=== PATIENT | male | born 1955 | race Caucasian/White ===

== ENCOUNTER → 2020-08-13 | Outpatient (REF) | payer MEDICARE, OTHER ==
[2020-08-13 18:54] LABS: APPEARANCE, URINE CLEAR (CLEAR); BACTERIA, URINE AUTO NEGATIVE (NEGATIVE); BILIRUBIN, URINE AUTO NEGATIVE (NEGATIVE); BLOOD, URINE BLOOD 2+ (NEGATIVE); COLOR, URINE STRAW (YELLOW); GLUCOSE, URINE (UA) AUTO NEGATIVE (NEGATIVE); KETONE, URINE AUTO NEGATIVE (NEGATIVE); LEUKOCYTE ESTERASE, URINE AUTO NEGATIVE (NEGATIVE); NITRITE, URINE AUTO NEGATIVE (NEGATIVE); PROTEIN, URINE AUTO NEGATIVE (NEGATIVE); RBC, URINE AUTO 3 /HPF (0-3); SPECIFIC GRAVITY URINE AUTO 1.004 (1.002-1.035); SQUAMOUS EPITHELIAL CELL UR AU 0 /HPF (0-6); UROBILINOGEN, URINE AUTO 0.2 mg/dL (0.0-2.0); WBC, URINE AUTO 0 /HPF (0-3)
== END ==
LOC: M SMT 18:03
PROVIDERS: ATTEND Urology
DX: R39.9 Unspecified symptoms and signs involving the genitourinary system (principal); R97.20 Elevated prostate specific antigen [PSA]

== ENCOUNTER → 2020-09-19 | Outpatient (CLI) | payer MEDICARE ==
[~2020-09-19] MED LIST: PROHANCE 279.3MG/ML 15ML VIAL As Ordered ONE; PROHANCE 279.3MG/ML 5ML VIAL As Ordered ONE
--- NOTE | 2020-09-19 11:51 | REP ---
INDICATION: ELEVATED PSA PROSTATE FUSION . COMPARISON: None. TECHNIQUE: Using a phased array surface coil, small hbhra-kb-vayt imaging was acquired using T2 weighted scans in the axial, coronal, and sagittal imaging planes. Small qdlwi-mr-hviy diffusion-weighted sequences are acquired. Small nvtrh-ok-oqbt axial T1 weighted scans are acquired dynamically before and after the intravenous administration of 20 mL of ProHance. Imaging is reviewed using the [employer] computer-aided detection system. FINDINGS: There are degenerative changes of the lower lumbar spine. No suspicious bone lesion is seen of the pelvic osseous structures. There is no evidence of free fluid in the pelvis. No adenopathy is seen in the pelvis. The prostate is enlarged with nodular areas of mixed signal throughout the central zone and transitional zone. Seminal vesicles are asymmetric, the right is fluid-filled while the left is not significantly fluid-filled. The prostate is enlarged, measuring 5.6 x 4.8 x 5.5 cm, total volume 74.02 cc. Four regions of interest are identified for potential MR ultrasound fusion biopsy. First in the transitional zone on the right extending from the base to the apex there is ill-defined predominantly low signal on T2 and diffusion-weighted imaging, with ill-defined areas of type 3 enhancement. The area measures 4.0 x 1.7 x 4.2 cm for total volume of 12.96 cc. Overall level of suspicion is 3/5 with clinically significant cancer equivocal. Secondly in the central zone bilaterally and bilateral basilar anterolateral peripheral zone, there are geographic somewhat wedge-shaped areas of hypointensity on T2 and diffusion-weighted imaging. No arterial enhancement is seen in these regions. This may represent areas of prostatitis. The area measures 4.8 x 0.3 x 1.7 cm, total volume 4.67 cc. Overall level of suspicion is 2/5, low suspicion for clinically significant cancer. Third in the left mid and apicoposterior transitional zone there is ill-defined relatively low signal on T2 and diffusion-weighted imaging without significant internal arterial phase enhancement. This area measures 2.1 x 0.5 x 2.1 cm for total volume of 1.95 cc. Overall level of suspicion for clinically significant cancer is low, 2/5. Finally in the left mid posterior transitional zone there is an area of ill-defined relatively low signal on T2 and diffusion-weighted imaging without internal arterial phase enhancement. This area measures 1.8 x 0.6 x 1.4 cm for total volume of 1.15 cc. Overall level of suspicion for clinically significant cancer is low, 2/5. IMPRESSION: Enlarged prostate with findings of benign prostatic hypertrophy. Four regions of interest are identified in the prostate for potential MR ultrasound fusion guided biopsy, overall level of suspicion for clinically significant cancer ranges from low, 2/5, to equivocal, 3/5. <Electronically signed by Ariel Fajardo > 09/19/20 [id number]
== END ==
LOC: M RAD 08:58
PROVIDERS: ATTEND Urology
DX: R97.20 Elevated prostate specific antigen [PSA] (principal)
CPT/HCPCS: 72197; A9576

== ENCOUNTER → 2020-09-25 | Outpatient (CLI) | payer MEDICARE ==
--- NOTE | 2020-09-25 10:24 | REPPI ---
INDICATION: elevated PSA. COMPARISON: MRI 09/19/2020. TECHNIQUE: Transrectal prostate ultrasound performed, with ultrasound guidance provided for Dr. Ford who performed ultrasound-guided biopsy. FINDINGS: Transrectal prostate ultrasound guidance provided for Dr. Ford who performed ultrasound-guided biopsy. IMPRESSION: Ultrasound guidance was provided for Dr. Ford who performed ultrasound-guided biopsy of the prostate, with MR fusion. <Electronically signed by Ariel Fajardo > 09/25/20 [id number]
== END ==
LOC: M SMT PRO 08:37
PROVIDERS: ATTEND Urology
DX: R97.20 Elevated prostate specific antigen [PSA] (principal)
CPT/HCPCS: 55700; 76942; G0416

== ENCOUNTER → 2023-12-28 | Outpatient (CLI) | payer MEDICARE | LOC: M PAIN 13:00 | PROVIDERS: ATTEND Nurse Practitioner Family | DX: M51.16 Intervertebral disc disorders with radiculopathy, lumbar region (principal); M46.1 Sacroiliitis, not elsewhere classified; G89.29 Other chronic pain; E11.51 Type 2 diabetes mellitus with diabetic peripheral angiopathy without gangrene; I48.91 Unspecified atrial fibrillation; K21.9 Gastro-esophageal reflux disease without esophagitis; E78.00 Pure hypercholesterolemia, unspecified; E53.8 Deficiency of other specified B group vitamins; I10 Essential (primary) hypertension; G47.33 Obstructive sleep apnea (adult) (pediatric); Z79.891 Long term (current) use of opiate analgesic; Z79.84 Long term (current) use of oral hypoglycemic drugs; Z91.048 Other nonmedicinal substance allergy status ==

== ENCOUNTER → 2024-01-29 | Outpatient (CLI) | payer MEDICARE | LOC: M PLAIMG 12:00 | PROVIDERS: ATTEND Nurse Practitioner Family | DX: M51.16 Intervertebral disc disorders with radiculopathy, lumbar region (principal); M46.1 Sacroiliitis, not elsewhere classified; M47.816 Spondylosis without myelopathy or radiculopathy, lumbar region; M48.061 Spinal stenosis, lumbar region without neurogenic claudication ==

== ENCOUNTER → 2024-02-23 | Outpatient (CLI) | payer MEDICARE | LOC: M PAIN 11:30 | PROVIDERS: ATTEND Nurse Practitioner Family | DX: M48.00 Spinal stenosis, site unspecified (principal); M51.16 Intervertebral disc disorders with radiculopathy, lumbar region; E11.51 Type 2 diabetes mellitus with diabetic peripheral angiopathy without gangrene; I48.91 Unspecified atrial fibrillation; R41.89 Other symptoms and signs involving cognitive functions and awareness; R97.20 Elevated prostate specific antigen [PSA]; G89.29 Other chronic pain; E78.00 Pure hypercholesterolemia, unspecified; E53.8 Deficiency of other specified B group vitamins; I10 Essential (primary) hypertension; G47.33 Obstructive sleep apnea (adult) (pediatric); Z79.891 Long term (current) use of opiate analgesic; Z79.84 Long term (current) use of oral hypoglycemic drugs; Z79.1 Long term (current) use of non-steroidal anti-inflammatories (NSAID); Z79.899 Other long term (current) drug therapy; Z91.018 Allergy to other foods ==